=== PATIENT | male | born 2000 | race Caucasian/White ===

== ENCOUNTER 2021-06-15 09:56 | Emergency (ER) | payer BC, SELFPAY ==
--- NOTE | ~2021-06-15 | XR_ITS ---
EXAMINATION: XR wrist LT min 3V EXAM DATE: 06/15/2021 10:16 INDICATION: Slipped On Ice. Hyperextended X2 Wks Ago. Pain. TECHNIQUE: Left wrist frontal, frontal with ulnar deviation, oblique and lateral projections obtained and reviewed. There is no prior study for comparison. FINDINGS: Left wrist scapholunate joint space is maintained. There are no acute fractures or dislocat ions identified. There is no subcutaneous gas. The soft tissue is unremarkable. There are no radi opaque foreign bodies. IMPRESSION: 1. XR wrist LT min 3V exam without acute osseous findings. Reviewed, dictated and finalized at location A. HASING ANALYST
--- NOTE | 2021-06-15 09:59 | ED.UPPEXIN ---
HPI - Extremity Injury (Upper) General Chief Complaint: Extremity Injury, Upper Stated Complaint: left wrist injury Time Seen by Provider: 06/15/21 09:59 Source: patient and RN notes reviewed History of Present Illness HPI narrative: Patient is a 21-year-old male presents the urgent care with complaints of left wrist injury 2 weeks ago. Patient states that he slipped and fell on ice and caught himself with the hand outward. Patient states he has fractured that wrist in the past as well as sprained it several times. Patient states that the pain is worsened over the last 24 hours after hearing a pop at work yesterday . Patient has been taking ibuprofen, wearing a brace, and using ice for comfort. No other acute complaints or injuries. No acute distress noted. Patient aware of the plan of care. Some parts of this dictation were generated by voice recognition software and may contain typographical and/or grammatical inaccuracies. Related Data Home Medications Medication Instructions Recorded Confirmed No Home Medications 06/15/21 06/15/21 Allergies Allergy/AdvReac Type Severity Reaction Status Date / Time No Known Allergies Allergy Verified 06/15/21 10:10 Review of Systems Review of Systems: CONSTITUTIONAL: Denies fever, chills, or sweats. EYES: Denies visual changes, redness, or discharge. ENT: Denies rhinorrhea, congestion, sore throat, or otalgia. CARDIOVASCULAR: Denies chest pain, palpitations, or edema. RESPIRATORY: Denies cough or dyspnea. GASTROINTESTINAL: Denies abdominal pain, nausea, vomiting, or diarrhea. GENITOURINARY: Denies dysuria or hematuria. SKIN: Denies rash or itching. MUSCULOSKELETAL: Reports of left wrist pain due to injury NEUROLOGIC: Denies headache, numbness, or weakness. All other systems reviewed are negative, except as documented in HPI. PMFSH Comments At the time of my signature, I reviewed and agree with the nursing past medical, surgical, social, and family history. There is no relevant family history pertinent to the patient complaint. Exam Narrative: GENERAL: This is a well-nourished, well-developed patient, in no apparent distress. HEAD: normocephalic, atraumatic. EYES: PERRL. Sclera clear/white. Vision is grossly intact. EARS: External ears normal NOSE: External nose normal with no obvious nasal discharge, nares without redness, no rhinorrhea. THROAT: Mucous membranes moist NECK: Neck supple CARDIOVASCULAR: Regular rate and rhythm without murmurs, gallops, or rubs. RESPIRATORY: Clear to auscultation. Breath sounds equal bilaterally. No wheezes, rales, or rhonchi. SKIN: warm, intact with no suspicious lesions or rash, good texture and turgor. NEURO: awake, alert, and oriented to person, place and time. There were no obvious focal neurologic abnormalities. EXTREMITIES: No obvious deformity/edema/ecchymosis or erythema noted to the left wrist. Range of motion limited due to pain. Tenderness to the ulnar aspect of the left wrist. Positive strong left radial pulse with capillary refill less than 2 seconds. Course Course Level of Care: Express Care Visit Vital Signs Vital signs: Vital Signs Temperature 98.7 F 06/15/21 10:02 Pulse Rate 76 06/15/21 10:02 Respiratory Rate 16 06/15/21 10:02 Blood Pressure 129/81 06/15/21 10:02 Pulse Oximetry 100 06/15/21 10:02 Temperature 98.7 F 06/15/21 10:02 Pulse Rate 76 06/15/21 10:02 Respiratory Rate 16 06/15/21 10:02 Blood Pressure 129/81 06/15/21 10:02 Pulse Oximetry 100 06/15/21 10:02 Reviewed MDM - Extremity Injury (Upper) MDM Narrative Medical decision making narrative: Reviewed x-ray results with the patient. He is aware the x-ray was negative for any fracture or deformity. Advised patient to continue wearing his wrist brace and follow-up with his orthopedic, Dr. Viveros/Christ for any increase in pain or no improvements. Continue ice and ibuprofen as needed. Follow-up with your PCP within 2
[2021-06-15 10:02] VITALS: BP 129/81; PULSE 76; RESP 16; TEMP 37.1; O2SAT 100
== END 2021-06-15 10:50 | disposition home or self-care (01) ==
PROVIDERS: Emergency Provider Nurse Practitioner Family
DX: S63.502A Unspecified sprain of left wrist, initial encounter (principal); S66.912A Strain of unspecified muscle, fascia and tendon at wrist and hand level, left hand, initial encounter; W00.0XXA Fall on same level due to ice and snow, initial encounter
CPT/HCPCS: 73110; 99213; G0463